=== PATIENT | female | born 1990 | race Caucasian/White ===

== ENCOUNTER → 2020-10-31 08:21 | Outpatient (CLI) | payer MEDICAID, SELFPAY ==
[2020-10-31 08:41] LABS: Absolute Lymphocyte Count 1.87 X10^3/uL (0.83-4.51); Absolute Neutrophil Count 4.4 X10^3/uL (2.0-7.7); Basophil# 0.03 X10^3/uL; Basophil% 0.4 % (0-1); Eosinophils% 5.6 % (0-5); Hematocrit 41.2 % (37-47); Hemoglobin 13.1 g/dL (12.0-15.0); Lymphocyte # 1.87 X10^3/ul (4.0); Lymphocyte % 26.4 % (19-41); Mean Corp Hgb Conc 31.8 g/dL (32-36); Mean Corpuscular Hgb 27.7 pg (27.0-32.0); Mean Corpuscular Volume 87.1 fL (81-99); Mean Platelet Vol. 9.5 fl (6.2-12.0); Monocyte# 0.36 X10^3/uL; Monocyte% 5.1 % (0-10); NRBC Flagged by Analyzer 0 % (0-5); Neutrophil # 4.41 X10^3/uL (2.7-7.7); Neutrophil % 62.4 % (47-70); Platelet Count 301 K/mm3 (150-450); RBC Distribution Width CV 13.2 % (11.6-14.6); RBC Distribution Width SD 42.5 fl (35.1-43.9); Red Blood Count 4.73 M/mm3 (4.2-5.4); White Blood Count 7.1 K/mm3 (4.4-11.0)
[2020-10-31 09:18] LABS: BUN 13 mg/dL (7-18); Creatinine, Serum 0.61 mg/dL (0.55-1.02); EST Glomerular Filtration Rate 123 mL/min (>60); Glucose 81 mg/dL (74-106)
[2020-10-31 09:19] LABS: ALB/GLOB Ratio 0.9 RATIO (0.9-2.4); AST(SGOT) 12 U/L (15-37); Alanine Aminotransfer ALT/SGPT 25 U/L (13-56); Albumin, Serum 3.6 g/dL (3.2-5.0); Alkaline Phosphatase 90 U/L (45-117); Anion Gap 6 (5-15); BUN/Creat Ratio 21.2 RATIO (10-20); Chloride 107 mmol/L (98-107); Cholesterol 202 mg/dL (200); Est Glom Filt Rate - Afr Amer 149 mL/min (>60); Globulin 4.1 g/dL (2.2-4.2); High Density Lipoprotein 59 mg/dL; Potassium 4.1 mmol/L (3.5-5.1); Protein, Total 7.7 g/dL (6.4-8.2); Sodium Level 139 mmol/L (136-145); Triglycerides 51 mg/dL; Very Low Density Lipoprotein 10 mg/dL (5-40)
[2020-10-31 09:22] LABS: Vitamin D,25 Hydroxy 67.2 ng/mL
[2020-10-31 09:29] LABS: Hemoglobin A1c 5.5 % (3.8-5.6)
== END ==
PROVIDERS: Referring Provider Family Medicine; Visit Provider Family Medicine
DX: J45.909 Unspecified asthma, uncomplicated (principal); E55.9 Vitamin D deficiency, unspecified
CPT/HCPCS: 36415; 80053; 80061; 82306; 83036; 85025

== ENCOUNTER → 2021-02-17 | Outpatient (CLI) | payer MEDICAID, SELFPAY ==
[2021-02-17 14:04] LABS: Trichomonas Vag DNA by PCR Negative (Negative)
[2021-02-17 14:05] LABS: Probe Check PASS; Sample Adequacy Control PASS; Specimen Processing Control PASS
[2021-02-17 14:30] LABS: Chlamydia Trachomatis by PCR Negative (Negative); Neisserai gonorrhoeae by PCR Negative (Negative); Probe Check PASS; Sample Adequacy Control PASS; Specimen Processing Control PASS
== END | disposition home or self-care (01) ==
LOC: LABSPEC 10:00
PROVIDERS: Referring Provider Nurse Practitioner Adult Health; Visit Provider Nurse Practitioner Adult Health
DX: Z72.51 High risk heterosexual behavior (principal)
CPT/HCPCS: 87491; 87591; 87661

== ENCOUNTER → 2022-06-11 | Outpatient (CLI) | payer MEDICAID, SELFPAY ==
[2022-06-11 11:20] LABS: Absolute Neutrophil Count 3.9 X10^3/uL (2.0-7.7); Basophil# 0.03 X10^3/uL; Basophil% 0.5 % (0-1); Eosinophil# 0.33 X10^3/uL; Eosinophils% 5.1 % (0-5); Hematocrit 41.6 % (37-47); Hemoglobin 13.6 g/dL (12.0-15.0); Lymphocyte % 28.1 % (19-41); Mean Corp Hgb Conc 32.7 g/dL (32-36); Mean Corpuscular Hgb 28.5 pg (27.0-32.0); Mean Platelet Vol. 9.7 fl (6.2-12.0); Monocyte# 0.32 X10^3/uL; NRBC Flagged by Analyzer 0 % (0-5); Neutrophil # 3.92 X10^3/uL (2.7-7.7); Neutrophil % 61.1 % (47-70); Platelet Count 348 K/mm3 (150-450); RBC Distribution Width CV 13.3 % (11.6-14.6); RBC Distribution Width SD 42.3 fl (35.1-43.9); Red Blood Count 4.78 M/mm3 (4.2-5.4); White Blood Count 6.4 K/mm3 (4.4-11.0)
[2022-06-11 11:52] LABS: Vitamin B12 432 pg/mL (211-911)
[2022-06-11 12:14] LABS: ALB/GLOB Ratio 0.9 RATIO (0.9-2.4); AST(SGOT) 15 U/L (15-37); Alanine Aminotransfer ALT/SGPT 21 U/L (13-56); Albumin, Serum 3.7 g/dL (3.2-5.0); Alkaline Phosphatase 83 U/L (45-117); Anion Gap 4 (5-15); BUN 8 mg/dL (7-18); BUN/Creat Ratio 13.2 RATIO (10-20); Calcium,Total 9.1 mg/dL (8.5-10.1); Chloride 108 mmol/L (98-107); Creatinine, Serum 0.61 mg/dL (0.55-1.02); EST Glomerular Filtration Rate 123 mL/min (>60); Est Glom Filt Rate - Afr Amer 149 mL/min (>60); Globulin 4.1 g/dL (2.2-4.2); Glucose 86 mg/dL (74-106); Iron 71 ug/dL (50-170); Iron Binding Capacity,Total 347 ug/dL (250-450); PERCENT IRON SATURATION 20.5 % (15.0-55.0); Potassium 3.7 mmol/L (3.5-5.1); Protein, Total 7.8 g/dL (6.4-8.2); Sodium Level 140 mmol/L (136-145); T4 Free Direct 1.01 ng/dL (0.76-1.46); Thyroid Stim Hormone (TSH) 2.42 uIU/mL (0.358-3.74)
[2022-06-12 08:34] LABS: Thyroid Peroxidase AB 35 IU/mL (0-34)
[2022-06-14 20:22] LABS: Vitamin D 1,25-Dihydroxy 53.6 pg/mL (24.8-81.5)
== END | disposition home or self-care (01) ==
PROVIDERS: Referring Provider Nurse Practitioner Adult Health; Visit Provider Nurse Practitioner Adult Health
DX: R53.83 Other fatigue (principal); R63.5 Abnormal weight gain; K59.00 Constipation, unspecified
CPT/HCPCS: 36415; 80053; 82607; 82652; 82746; 83540; 83550; 84439; 84443; 85025; 86376

== ENCOUNTER → 2022-07-16 | Outpatient (CLI) | payer MEDICAID, SELFPAY ==
--- NOTE | 2022-07-16 08:37 | US_ITS ---
STUDY: THYROID ULTRASOUND REASON FOR EXAM: Female, 32 years old. DYSPHAGIA TECHNIQUE: Ultrasound evaluation of the thyroid was performed with real-time and static arrington-scale imaging. COMPARISON: None. FINDINGS: RIGHT LOBE: The right lobe of the thyroid gland measures 4.1 cm x 1.5 cm x 1.7 cm. There is a heterogeneous echotexture. There are no demonstrated solid, cystic or complex lesions. LEFT LOBE: The left lobe of the thyroid gland measures 3.7 cm x 1.7 cm x 1.3 cm. There is a heterogeneous echotexture. There are no demonstrated solid, cystic or complex lesions. ISTHMUS: The isthmus measures 3 mm. The regional lymph nodes are normal. US/Thyroid IMPRESSION: Heterogeneous echotexture of the thyroid bilaterally. No focal lesion is seen. Electronically Signed: William Navarro MD at 10:16 EDT ,
--- NOTE | 2022-07-16 08:38 | RAD_ITS ---
STUDY: X-RAY - ESOPHAGUS (BARIUM SWALLOW) WITH FLUOROSCOPY REASON FOR EXAM: Female, 32 years old. DYSPHAGIA TECHNIQUE: 17 view(s) of the esophagus were obtained following swallowing of barium. FLUOROSCOPY TIME (if supplied): (24 seconds) minutes/seconds COMPARISON: None. FINDINGS: There is no demonstrated esophageal foreign body. There is no demonstrated stricture or mucosal abnormality. Normal gastroesophageal junction, without a demonstrated hiatal hernia. The patient ingested a 12 mm tablet of barium without any difficulty. Normal visualized aortic arch and descending thoracic aorta. Normal visualized pulmonary parenchyma. Normal visualized osseous structures of the thorax. RAD/Esophagus Dual Contrast IMPRESSION: Normal plain film x-ray examination (barium swallow) of the esophagus. Electronically Signed: William Navarro MD at 10:07 EDT ,
--- NOTE | 2022-07-16 08:40 | RAD_ITS ---
EXAM: XR CERVICAL SPINE, 2 OR 3 VIEWS CLINICAL INDICATION: PARESTHESIA OF SKIN Technologist Notes BILAT NECK PAIN W/ RADIATION TOWARD BILAT SHOULDERS TECHNIQUE: Frontal and lateral views of the cervical spine. This report was created using [employer] report [employer] technology. COMPARISON: None. FINDINGS: VERTEBRAE: There is mild straightening of the normal cervical lordosis. This can suggest neck strain. The odontoid process is obscured by the overlying hard palate on the open mouth view. Therefore, it is not fully evaluated by plain film. Preserved vertebral body height. No acute fracture. No spondylolisthesis. No significant facet arthropathy. DISC SPACES: Unremarkable. Disc spaces are maintained. SOFT TISSUES: See above. LUNG APICES: Clear. RAD/Cerv Spine 2 or 3 Views IMPRESSION: 1. There is mild straightening of the normal cervical lordosis. This can suggest neck strain. 2. The odontoid process is obscured by the overlying hard palate on the open mouth view. Therefore, it is not fully evaluated by plain film. Electronically Signed: Konstantin Brar MD at 17:06 EDT ,
== END | disposition home or self-care (01) ==
LOC: US 08:36
PROVIDERS: Referring Provider Nurse Practitioner Adult Health; Visit Provider Nurse Practitioner Adult Health
DX: R47.02 Dysphasia (principal); R20.2 Paresthesia of skin
CPT/HCPCS: 72040; 74221; 76536

== ENCOUNTER → 2022-12-17 | Outpatient (CLI) | payer MEDICAID, SELFPAY ==
--- NOTE | 2022-12-17 08:46 | US_ITS ---
STUDY: ABDOMINAL ULTRASOUND REASON FOR EXAM: Female, 32 years old. Right upper quadrant pain. TECHNIQUE: Transabdominal ultrasound was performed with real-time and static arrington scale imaging. TECHNICAL QUALITY: Limited. Examination limited due to a combination of factors including obesity and bowel gas. COMPARISON: None. FINDINGS: Liver: The liver measures 15 cm. The mild degree of fatty infiltration of the liver. The bile ducts are within normal limits. There is hepatic color flow. The direction of portal flow is hepatopetal. There is no demonstrated mass lesion. Gallbladder: There is a contracted gallbladder. The gallbladder wall measures 1.5 mm. There is a negative sonographic Magana''s sign. There is no pericholecystic fluid. There are no gallstones. Common Bile Duct (C.B.D.): The common bile duct measures 2.1 mm. Pancreas: Normal size of the head, body and tail of the pancreas. There is increased echogenicity of the pancreas. There is no demonstrated pancreatic mass or cyst. Spleen: Normal size of the spleen. The spleen measures 11.2 cm x 4.2 cm x 4.1 cm. Right Kidney: Normal size of the right kidney. The right kidney measures 10.8 cm x 5.3 cm x 4.1 cm. Normal renal cortex. The right cortex measures 1.6 cm. There is no demonstrated renal mass or cyst. There is no right hydronephrosis. Left Kidney: Normal size of the left kidney. The left kidney measures 10.9 cm x 4.3 cm x 4.4 cm. Normal renal cortex. The left cortex measures 1.2 cm. There is no demonstrated renal mass or cyst. There is no left hydronephrosis. Aorta: Unremarkable I.V.C.: The IVC is patent. There is no ascites. US/Abdomen Complete IMPRESSION: Mild degree of fatty infiltration of the liver. Electronically Signed: William Navarro MD at 10:56 EST ,
[2022-12-17 09:42] LABS: Hemoglobin 13.2 g/dL (12.0-15.0); Mean Corp Hgb Conc 32.2 g/dL (32-36); Mean Corpuscular Hgb 28.3 pg (27.0-32.0); Mean Corpuscular Volume 87.8 fL (81-99); Mean Platelet Vol. 9.8 fl (6.2-12.0); Platelet Count 345 K/mm3 (150-450); RBC Distribution Width CV 13.2 % (11.6-14.6); RBC Distribution Width SD 42.6 fl (35.1-43.9); Red Blood Count 4.67 M/mm3 (4.2-5.4); White Blood Count 6.7 K/mm3 (4.4-11.0)
[2022-12-17 10:21] LABS: ALB/GLOB Ratio 0.9 RATIO (0.9-2.4); AST(SGOT) 14 U/L (15-37); Alanine Aminotransfer ALT/SGPT 28 U/L (13-56); Albumin, Serum 3.7 g/dL (3.2-5.0); Alkaline Phosphatase 85 U/L (45-117); Anion Gap 4 (5-15); BUN 7 mg/dL (7-18); BUN/Creat Ratio 11.5 RATIO (10-20); Calcium,Total 9.2 mg/dL (8.5-10.1); Chloride 108 mmol/L (98-107); Creatinine, Serum 0.61 mg/dL (0.55-1.02); EST Glomerular Filtration Rate 123 mL/min (>60); Est Glom Filt Rate - Afr Amer 149 mL/min (>60); Globulin 4.1 g/dL (2.2-4.2); Glucose 87 mg/dL (74-106); Lipase 67 U/L (73-393); Protein, Total 7.8 g/dL (6.4-8.2); Sodium Level 140 mmol/L (136-145)
== END | disposition home or self-care (01) ==
LOC: US 08:36
DX: R10.11 Right upper quadrant pain (principal); K76.0 Fatty (change of) liver, not elsewhere classified
CPT/HCPCS: 36415; 76700; 80053; 83690; 85027